=== PATIENT | male | born 1955 | race Caucasian/White ===

== ENCOUNTER → 2017-02-03 | Outpatient (REF) | payer OTHER ==
[2017-02-03 18:58] LABS: MEAN CORPUSCULAR HEMOGLOBIN 29.5 pg (27.0-33.0); MEAN CORPUSCULAR HGB CONC 33.2 g/dl (32.0-36.5); MEAN CORPUSCULAR VOLUME 88.9 fl (80.0-96.0); WHITE BLOOD COUNT 7.9 K/mm3 (4.0-10.0)
[2017-02-03 19:33] LABS: ALBUMIN/GLOBULIN RATIO 0.86 (1.00-1.93); ALKALINE PHOSPHATASE 146 U/L (45-117); ALT/SGPT 28 U/L (12-78); ANION GAP 12 MEQ/L (8-16); AST/SGOT 15 U/L (15-37); BILIRUBIN,TOTAL 0.2 MG/DL (0.2-1.0); BLOOD UREA NITROGEN 47 MG/DL (7-18); CALCIUM LEVEL 8.2 MG/DL (8.8-10.2); CARBON DIOXIDE LEVEL 19 MEQ/L (21-32); CHLORIDE LEVEL 111 MEQ/L (98-107); CHOLESTEROL LEVEL 198 MG/DL (<200); CREATININE FOR GFR 2.67 MG/DL (0.70-1.30); GLOMERULAR FILTRATION RATE 25.9 (>49); GLUCOSE, FASTING 274 MG/DL (80-110); SODIUM LEVEL 142 MEQ/L (136-145); T UPTAKE 35 % (33-40); THYROXINE (T4) 9.6 UG/DL (4.5-12.0); TOTAL PROTEIN 6.5 GM/DL (6.4-8.2); TRIGLYCERIDES LEVEL 412 MG/DL (<150)
== END ==
LOC: M SFHCLERA 09:13
PROVIDERS: ATTEND Family Medicine
DX: E11.9 Type 2 diabetes mellitus without complications (principal)

== ENCOUNTER → 2017-03-16 | Outpatient (REF) | payer OTHER ==
[2017-03-16 18:13] LABS: MEAN CORPUSCULAR HEMOGLOBIN 29.5 pg (27.0-33.0); MEAN CORPUSCULAR HGB CONC 32.5 g/dl (32.0-36.5); MEAN CORPUSCULAR VOLUME 90.9 fl (80.0-96.0); RED CELL DISTRIBUTION WIDTH 13.8 % (11.5-14.5); WHITE BLOOD COUNT 6.1 K/mm3 (4.0-10.0)
[2017-03-16 18:36] LABS: ALBUMIN 3.3 GM/DL (3.2-5.2); ALKALINE PHOSPHATASE 144 U/L (45-117); ALT/SGPT 35 U/L (12-78); ANION GAP 8 MEQ/L (8-16); AST/SGOT 13 U/L (15-37); BILIRUBIN,TOTAL 0.3 MG/DL (0.2-1.0); BLOOD UREA NITROGEN 40 MG/DL (7-18); CARBON DIOXIDE LEVEL 22 MEQ/L (21-32); CHLORIDE LEVEL 106 MEQ/L (98-107); CHOLESTEROL LEVEL 200 MG/DL (<200); GLOMERULAR FILTRATION RATE 22.6 (>49); GLUCOSE, FASTING 341 MG/DL (80-110); TOTAL PROTEIN 6.6 GM/DL (6.4-8.2); TRIGLYCERIDES LEVEL 472 MG/DL (<150)
[2017-03-16 18:53] LABS: SODIUM LEVEL 136 MEQ/L (136-145)
== END ==
LOC: M SFHCLERA 10:34
PROVIDERS: ATTEND Family Medicine
DX: E11.3219 Type 2 diabetes mellitus with mild nonproliferative diabetic retinopathy with macular edema, unspecified eye (principal)

== ENCOUNTER → 2017-07-25 | Outpatient (REF) | payer OTHER ==
[2017-07-25 16:06] LABS: CALCIUM LEVEL 8.4 MG/DL (8.8-10.2); CREATININE FOR GFR 2.96 MG/DL (0.70-1.30)
[2017-07-25 16:11] LABS: POTASSIUM SERUM 5.8 MEQ/L (3.5-5.1)
== END ==
LOC: M SFHCLERA 11:02
PROVIDERS: ATTEND Family Medicine
DX: E13.3 Other specified diabetes mellitus with ophthalmic complications (principal); E78.2 Mixed hyperlipidemia

== ENCOUNTER → 2017-07-27 | Outpatient (REF) | payer OTHER ==
[2017-07-27 12:07] LABS: CALCIUM LEVEL 8.8 MG/DL (8.8-10.2); CREATININE FOR GFR 2.71 MG/DL (0.70-1.30); GLOMERULAR FILTRATION RATE 25.4 (>49)
== END ==
LOC: M SFHCLERA 09:57
PROVIDERS: ATTEND Family Medicine
DX: E87.5 Hyperkalemia (principal)

== ENCOUNTER → 2017-07-31 | Outpatient (CLI) | payer OTHER ==
[2017-07-31 12:58] LABS: CALCIUM LEVEL 8.1 MG/DL (8.8-10.2); CREATININE FOR GFR 3.1 MG/DL (0.70-1.30); GLOMERULAR FILTRATION RATE 21.8 (>49)
[2017-07-31 13:06] LABS: POTASSIUM SERUM 5.7 MEQ/L (3.5-5.1)
== END ==
LOC: M LAB 11:51
PROVIDERS: ATTEND Family Medicine
DX: E87.5 Hyperkalemia (principal)

== ENCOUNTER → 2017-10-23 | Outpatient (REF) | payer OTHER | LOC: M SFHCLERA 11:12 | PROVIDERS: ATTEND Family Medicine | DX: E13.3 Other specified diabetes mellitus with ophthalmic complications (principal); E78.2 Mixed hyperlipidemia; N18.4 Chronic kidney disease, stage 4 (severe); E13.22 Other specified diabetes mellitus with diabetic chronic kidney disease ==

== ENCOUNTER → 2018-03-01 | Outpatient (REF) | payer OTHER ==
[2018-03-01 12:00] LABS: ESTIMATED AVERAGE GLUCOSE 246 MG/DL (60-110); HEMOGLOBIN A1c 10.2 %
[2018-03-01 12:18] LABS: THYROID STIMULATING HORMONE 0.879 uIU/ML (0.358-3.740)
== END ==
LOC: M SFHCLERA 10:47
DX: E11.9 Type 2 diabetes mellitus without complications (principal)
CPT/HCPCS: 84443

== ENCOUNTER → 2018-06-27 | Outpatient (REF) | payer OTHER ==
[2018-06-27 14:07] LABS: ESTIMATED AVERAGE GLUCOSE 217 MG/DL (60-110); HEMOGLOBIN A1c 9.2 %
== END ==
LOC: M SFHCLERA 09:17
DX: E11.9 Type 2 diabetes mellitus without complications (principal)

== ENCOUNTER → 2018-12-27 | Outpatient (REF) | payer OTHER ==
[2018-12-27 14:33] LABS: CHOLESTEROL RISK RATIO 6.181 (<5)
[2018-12-27 15:23] LABS: CREATININE, URINE 94.3 MG/DL; MAU/CREAT RATIO 1336.1 MCG/MG (0.0-30.0)
[2018-12-27 15:44] LABS: HEMOGLOBIN A1c 9.7 %
== END ==
LOC: M SFHCLERA 13:16
PROVIDERS: ATTEND Family Medicine
DX: E11.9 Type 2 diabetes mellitus without complications (principal)

== ENCOUNTER → 2019-01-07 | Outpatient (REF) | payer OTHER ==
[2019-01-07 11:40] LABS: CHOLESTEROL RISK RATIO 6.545 (<5)
[2019-01-07 11:55] LABS: HEMOGLOBIN A1c 9.4 %
[2019-01-07 13:20] LABS: CREATININE, URINE 92.8 MG/DL
== END ==
LOC: M SFHCLERA 08:06
PROVIDERS: ATTEND Family Medicine
DX: E11.9 Type 2 diabetes mellitus without complications (principal)

== ENCOUNTER → 2019-04-10 | Outpatient (REF) | payer OTHER, MEDICARE ==
[2019-04-10 11:52] LABS: HEMOGLOBIN A1c 9.2 %
[2019-04-10 12:01] LABS: CALCIUM LEVEL 8.6 MG/DL (8.8-10.2); CHOLESTEROL RISK RATIO 4.971 (<5); CREATININE FOR GFR 3.5 MG/DL (0.70-1.30); GLOMERULAR FILTRATION RATE 18.8 (>49); POTASSIUM SERUM 4.5 MEQ/L (3.5-5.1)
== END ==
LOC: M SFHCLERA 09:35
PROVIDERS: ATTEND Family Medicine
DX: E11.9 Type 2 diabetes mellitus without complications (principal); E78.2 Mixed hyperlipidemia

== ENCOUNTER → 2019-07-18 | Outpatient (REF) | payer OTHER, MEDICARE ==
[2019-07-18 12:22] LABS: CALCIUM LEVEL 8.4 MG/DL (8.8-10.2); CHOLESTEROL RISK RATIO 4.75 (<5); CREATININE FOR GFR 3.48 MG/DL (0.70-1.30); GLOMERULAR FILTRATION RATE 18.9 (>49); POTASSIUM SERUM 4.4 MEQ/L (3.5-5.1)
[2019-07-18 12:27] LABS: HEMOGLOBIN A1c 8.4 %
== END ==
LOC: M SFHCLERA 07:47
PROVIDERS: ATTEND Family Medicine
DX: E11.9 Type 2 diabetes mellitus without complications (principal); N18.4 Chronic kidney disease, stage 4 (severe)

== ENCOUNTER → 2019-10-22 | Outpatient (REF) | payer OTHER, MEDICARE ==
[2019-10-22 19:03] LABS: HEMOGLOBIN A1c 9.2 %
== END ==
LOC: M SFHCLERA 12:03
PROVIDERS: ATTEND Family Medicine
DX: E11.22 Type 2 diabetes mellitus with diabetic chronic kidney disease (principal); E03.9 Hypothyroidism, unspecified

== ENCOUNTER → 2020-03-03 | Outpatient (CLI) | payer OTHER, MEDICARE | LOC: M RAD 12:42 | PROVIDERS: ATTEND Nurse Practitioner Family | DX: N18.4 Chronic kidney disease, stage 4 (severe) (principal) ==

== ENCOUNTER → 2020-05-05 | Outpatient (CLI) | payer OTHER ==
[~2020-05-05] MED LIST: ASPI81CH33 PO; CALC1CAP31; DILT300C21; ESOM40CA35; GLIP10TA6; HYDR-3490; HYDR-3911; INSUH10VL; INSULANT; LEVO150T7; METO100T5; ROSU40TA4
[2020-05-05 13:59] LABS: BASO % 0.4 % (0.0-1.0); EOS # 0.2 10^3/uL (0.0-0.5); EOS % 2.3 % (0.0-3.0); HEMATOCRIT 37.3 % (42.0-52.0); HEMOGLOBIN 12.1 g/dl (13.5-17.5); LYMPH # 1.4 10^3/uL (1.5-5.0); LYMPH % 18.1 % (24.0-44.0); MEAN CORPUSCULAR HEMOGLOBIN 29.2 pg (27.0-33.0); MEAN CORPUSCULAR HGB CONC 32.4 g/dl (32.0-36.5); MEAN CORPUSCULAR VOLUME 90.1 fl (80.0-96.0); MONO # 0.7 10^3/uL (0.0-0.8); MONO % 9.5 % (0.0-5.0); NEUTROPHILS # 5.3 10^3/uL (1.5-8.5); NEUTROPHILS % 69.3 % (36.0-66.0); PLATELET COUNT, AUTOMATED 207 10^3/uL (150-450); RED BLOOD COUNT 4.14 10^6/uL (4.30-6.10); WHITE BLOOD COUNT 7.7 10^3/uL (4.0-10.0)
[2020-05-05 14:24] LABS: ALBUMIN 3.3 GM/DL (3.2-5.2); ALT/SGPT 26 U/L (12-78); BILIRUBIN,DIRECT 0.1 MG/DL (0.0-0.2); BILIRUBIN,TOTAL 0.4 MG/DL (0.2-1.0); TOTAL PROTEIN 6.5 GM/DL (6.4-8.2)
[2020-05-05 14:34] LABS: HEPATITIS B SURFACE ANTIBODY NEGATIVE (POSITIVE)
[2020-05-05 14:44] LABS: HEPATITIS B SURFACE ANTIGEN NEGATIVE (NEGATIVE)
[2020-05-05 14:46] LABS: HEMOGLOBIN A1c 9.1 %
--- NOTE | 2020-05-05 14:49 | REP ---
Clinical: Preoperative assessment. Awaiting kidney transplant. Comparison: None . Technique: PA and lateral. Findings: The mediastinum and cardiac silhouette are normal. The lung sen are clear and without acute consolidation, effusion, or pneumothorax. The skeletal structures are intact and normal. Impression: 1. No acute cardiopulmonary process. Electronically Signed by Kavon Dietrich MD 05/05/2020 02:41 P
[2020-05-06 12:08] LABS: C-PEPTIDE 5.1 ng/mL (1.1-4.4)
[2020-05-06 19:07] LABS: CARDIOLIPIN IGA ANTIBODY <9 APL U/mL (0-11); CARDIOLIPIN IGG ANTIBODY <9 GPL U/mL (0-14); CARDIOLIPIN IGM ANTIBODY <9 MPL U/mL (0-12); CYTOMEGALOVIRUS IgG ANTIBODY <0.60 U/mL (0.00-0.59); EBV AB TO NUCLEAR ANTIGEN >600.0 U/mL (0.0-17.9); EBV VIRAL CAPSID AG IgG >600.0 U/mL (0.0-17.9); EBV VIRAL CAPSID AG IgM <36.0 U/mL (0.0-35.9); G6PD2 4.17 x10E6/uL (4.14-5.80)
== END ==
LOC: M RAD 11:39
PROVIDERS: ATTEND Internal Medicine Nephrology
DX: Z01.818 Encounter for other preprocedural examination (principal); N18.6 End stage renal disease

== ENCOUNTER → 2020-05-14 | Outpatient (CLI) | payer OTHER ==
--- NOTE | 2020-05-15 07:33 | REP ---
ULTRASOUND ABDOMEN: Real-time sonographic evaluation of the abdomen performed. Gallbladder demonstrates no evidence of intraluminal sludge or calculi, wall thickening or pericholecystic fluid. There is no intrahepatic or extrahepatic biliary dilatation, common bile duct measuring 6 mm. The liver and pancreas demonstrate on gross mass. Evaluation is limited due to patient body habitus and bowel gas. The spleen is normal in size with no intrinsic abnormality measuring 11.6 cm in length. The kidneys are normal in size and echotexture, right kidney measuring 13.3 x 7.0 x 6.5 cm and left kidney 12.7 x 6.5 cm and left kidney 12.7 x 6.5 x 5.4 cm. There is no hydronephrosis or gross renal mass. Abdominal aorta cannot be visualized due to overlying bowel gas. Urinary bladder measures 17.1 x 7.2 x 7.3 cm with no gross mass or calculus. Ureteral jets are seen in the urinary bladder with Doppler color evaluation. IMPRESSION: Limited exam due to body habitus and bowel gas. Grossly unremarkable Abdominal ultrasound as discussed above. Electronically Signed by Sergey Augustine MD 05/24/2020 11:25 A
== END ==
LOC: M LRY 08:55
PROVIDERS: ATTEND Internal Medicine Nephrology
DX: Z01.818 Encounter for other preprocedural examination (principal); Z76.82 Awaiting organ transplant status

== ENCOUNTER → 2020-08-26 | Outpatient (REF) | payer OTHER, MEDICARE ==
[2020-08-28 20:07] LABS: PSA TOTAL 1.4 ng/mL (0.0-4.0)
== END ==
LOC: M LAB REF 16:55
PROVIDERS: ATTEND Nurse Practitioner Family
DX: Z12.5 Encounter for screening for malignant neoplasm of prostate (principal)

== ENCOUNTER → 2020-10-17 | Outpatient (CLI) | payer OTHER, MEDICARE ==
[~2020-10-17] MED LIST changes: -HYDR-3490; +HYDR25TAB
== END ==
LOC: M LABSMTC 08:53
PROVIDERS: ATTEND Anesthesiology
DX: Z01.812 Encounter for preprocedural laboratory examination (principal); Z20.828 Contact with and (suspected) exposure to other viral communicable diseases

== ENCOUNTER 2020-10-22 08:43 | Day surgery (SDC) | payer OTHER, MEDICARE ==
[~2020-10-22] VITALS: Ht 190.5 cm; Wt 120.2 kg
[~2020-10-22 08:43] MED LIST changes: +NS 1,000 ML IV ONE
[2020-10-22] MEDS ORDERED: LIDOCAINE 2% 100MG/5ML SDV (FOR ANES.) As Ordered ONE (10:15)
[2020-10-22] MEDS ORDERED: propofoL 200 MG/20 ML VIAL As Ordered ONE ×3 (10:15→10:54)
[2020-10-22] MEDS ORDERED: ONDANSETRON 4MG/2ML VIAL As Ordered ONE (10:48)
[2020-10-22 11:25] VITALS: BP 174/70
--- NOTE | 2020-10-22 11:27 | ROOR ---
Patient Name: Percy Kaufman Procedure Date: 10/22/2020 10:07 AM Date of : 1955 Age: 65 Room: [facility] Gender: Male Note Status: Finalized Procedure: Colonoscopy Indications: Screening for colorectal malignant neoplasm Providers: Elvis Higginbotham MD Referring MD: FRANCISCO WALDROP MD Requesting Provider: Medicines: Monitored Anesthesia Care Complications: No immediate complications. Procedure: Pre-Anesthesia Assessment: - Prior to the procedure, a History and Physical was performed, and patient medications and allergies were reviewed. The patient is competent. The risks and benefits of the procedure and the sedation options and risks were discussed with the patient. All questions were answered and informed consent was obtained. Patient identification and proposed procedure were verified by the physician, the nurse and the anesthesiologist in the procedure room. Mental Status Examination: alert and oriented. Airway Examination: normal oropharyngeal airway and neck mobility. Respiratory Examination: clear to auscultation. CV Examination: normal. Prophylactic Antibiotics: The patient does not require prophylactic antibiotics. Prior Anticoagulants: The patient has taken no previous anticoagulant or antiplatelet agents. ASA Grade Assessment: II - A patient with mild systemic disease. After reviewing the risks and benefits, the patient was deemed in satisfactory condition to undergo the procedure. The anesthesia plan was to use monitored anesthesia care (MAC). Immediately prior to administration of medications, the patient was re-assessed for adequacy to receive sedatives. The heart rate, respiratory rate, oxygen saturations, blood pressure, adequacy of pulmonary ventilation, and response to care were monitored throughout the procedure. The physical status of the patient was re-assessed after the procedure. The Colonoscope was introduced through the anus and advanced to the cecum, identified by appendiceal orifice and ileocecal valve. The colonoscopy was technically difficult and complex due to multiple diverticula in the colon, a tortuous colon and the patient's respiratory instability. Successful completion of the procedure was aided by applying abdominal pressure. The patient tolerated the procedure poorly due to the patient's respiratory instability. The quality of the bowel preparation was good. The ileocecal valve, appendiceal orifice, and rectum were photographed. Scope insertion time was 3 minutes. Scope withdrawal time was 10 minutes. The total duration of the procedure was 30 minutes. Findings: The perianal and digital rectal examinations were normal. A 35 mm polyp was found in the ascending colon. The polyp was pedunculated and semi-sessile. An endoloop device was successfully placed at the base of the polyp. There was no bleeding during and at the end of the procedure. The polyp was removed with a hot snare. Resection and retrieval were complete. Verification of patient identification for the specimen was done by the physician and nurse using the patient's name, date and medical record number. Estimated blood loss was minimal. A 5 mm polyp was found in the transverse colon. The polyp was sessile. The polyp was removed with a cold snare. Resection and retrieval were complete. Multiple small and large-mouthed diverticula were found from sigmoid to transverse colon. There was no evidence of diverticular bleeding. Non-bleeding external and internal hemorrhoids were found during retroflexion. The hemorrhoids were large. Impression: - One 35 mm polyp in the ascending colon, removed with a hot snare. Resected and retrieved. - One 5 mm polyp in the transverse colon, removed with a cold snare. Resected and retrieved. - Severe diverticulosis from sigmoid to transverse colon. There was no evidence of diverticular bleeding. - Non-bleeding external and internal hemorrhoids. Recommendation: - Patient has a contact number available for emergencies. The signs and symptoms of potential delayed complications were discussed with the patient. Return to normal activities tomorrow. Written discharge instructions were provided to the patient. - Clear liquid diet today, then advance as tolerated to high fiber diet. - Continue present medications. - Miralax 1 capful (17 grams) in 8 ounces of water PO daily. - Await pathology results. - Repeat colonoscopy in 3 - 6 months for surveillance based on pathology results. - Return to GI clinic in 2 months. - Telephone GI clinic for pathology results in 2 weeks. - Return to primary care physician. Procedure Code(s): --- Professional --- 02076, Colonoscopy, flexible; with removal of tumor(s), polyp(s), or other lesion(s) by snare technique Diagnosis Code(s): --- Professional --- Z12.11, Encounter for screening for malignant neoplasm of colon K63.5, Polyp of colon K64.8, Other hemorrhoids K57.30, Diverticulosis of large intestine without perforation or abscess without bleeding CPT copyright 2019 [employer]. All rights reserved. The codes documented in this report are preliminary and upon vp communications review may be revised to meet current compliance requirements. Elvis Higginbotham MD Elvis Higginbotham MD 10/22/2020 11:27:01 AM Electronically signed by Elvis Higginbotham MD Number of Addenda: 0 Note Initiated On: 10/22/2020 10:07 AM Estimated Blood Loss: Estimated blood loss was minimal.
== END 2020-10-22 12:10 | disposition home or self-care (01) ==
LOC: M OPP 08:43
PROVIDERS: ATTEND Internal Medicine Gastroenterology
DX: Z12.11 Encounter for screening for malignant neoplasm of colon (principal); D12.6 Benign neoplasm of colon, unspecified; K64.8 Other hemorrhoids; K57.30 Diverticulosis of large intestine without perforation or abscess without bleeding; E11.9 Type 2 diabetes mellitus without complications; E03.9 Hypothyroidism, unspecified; Z79.82 Long term (current) use of aspirin; Z79.899 Other long term (current) drug therapy; Z88.8 Allergy status to other drugs, medicaments and biological substances
CPT/HCPCS: 45385; 88305; J2405

== ENCOUNTER → 2020-11-23 | Outpatient (CLI) | payer OTHER, MEDICARE ==
[~2020-11-23] MED LIST changes: +HYDR-3490; -HYDR25TAB; -NS 1,000 ML IV ONE
== END ==
LOC: M LAB 16:26
PROVIDERS: ATTEND Internal Medicine Nephrology
DX: Z01.818 Encounter for other preprocedural examination (principal)

== ENCOUNTER → 2021-03-01 | Outpatient (REF) | payer OTHER, MEDICARE ==
[2021-03-01 18:07] LABS: CALCIUM LEVEL 9.1 MG/DL (8.8-10.2); CHOLESTEROL RISK RATIO 5.184 (<5); CREATININE FOR GFR 4.13 MG/DL (0.70-1.30); GLOMERULAR FILTRATION RATE 15.4 (>49); POTASSIUM SERUM 4.9 MEQ/L (3.5-5.1); THYROID STIMULATING HORMONE 3.33 uIU/ML (0.358-3.740)
[2021-03-01 18:16] LABS: HEMOGLOBIN A1c 10.6 %
== END ==
LOC: M SFHCLERA 16:52
PROVIDERS: ATTEND Family Medicine
DX: E11.22 Type 2 diabetes mellitus with diabetic chronic kidney disease (principal); E03.9 Hypothyroidism, unspecified

== ENCOUNTER → 2021-04-03 | Outpatient (CLI) | payer OTHER, MEDICARE ==
[~2021-04-03] MED LIST changes: +D3-5CAP; -INSUH10VL; +INSUH10VL SC
== END ==
LOC: M LABSMTC 09:07
PROVIDERS: ATTEND Anesthesiology
DX: Z20.828 Contact with and (suspected) exposure to other viral communicable diseases (principal); Z11.59 Encounter for screening for other viral diseases

== ENCOUNTER → 2021-04-07 | Outpatient (CLI) | payer OTHER, MEDICARE ==
[2021-04-07 12:40] LABS: CALCIUM LEVEL 8.4 MG/DL (8.8-10.2); CREATININE FOR GFR 4.04 MG/DL (0.70-1.30); GLOMERULAR FILTRATION RATE 15.8 (>49); POTASSIUM SERUM 4.8 MEQ/L (3.5-5.1)
== END ==
LOC: M LAB 11:03
PROVIDERS: ATTEND Physician Assistant Medical
DX: Z12.11 Encounter for screening for malignant neoplasm of colon (principal)

== ENCOUNTER 2021-04-08 08:47 | Day surgery (SDC) | payer OTHER, MEDICARE ==
[~2021-04-08] VITALS: Ht 190.5 cm; Wt 118.8 kg
[~2021-04-08 08:47] MED LIST changes: +NS 1,000 ML IV ONE
[2021-04-08] MEDS ORDERED: fentaNYL 100 MCG/2 ML INJECTION (J3010) As Ordered ONE (10:09)
[2021-04-08] MEDS ORDERED: propofoL 500 MG/50 ML VIAL As Ordered ONE (10:32)
[2021-04-08 10:45] VITALS: BP 140/83
--- NOTE | 2021-04-08 11:04 | ROOR ---
Patient Name: Percy Kaufman Procedure Date: 04/08/2021 9:47 AM Date of : 1955 Age: 66 Room: [facility] Gender: Male Note Status: Finalized Procedure: Colonoscopy Indications: High risk colon cancer surveillance: Personal history of adenoma with high grade dysplasia Providers: Elvis Higginbotham MD Referring MD: Crispin Riley DO Requesting Provider: Medicines: Monitored Anesthesia Care Complications: No immediate complications. Procedure: Pre-Anesthesia Assessment: - Prior to the procedure, a History and Physical was performed, and patient medications and allergies were reviewed. The patient is competent. The risks and benefits of the procedure and the sedation options and risks were discussed with the patient. All questions were answered and informed consent was obtained. Patient identification and proposed procedure were verified by the physician, the nurse and the anesthesiologist in the procedure room. Mental Status Examination: alert and oriented. Airway Examination: normal oropharyngeal airway and neck mobility. Respiratory Examination: clear to auscultation. CV Examination: normal. Prophylactic Antibiotics: The patient does not require prophylactic antibiotics. Prior Anticoagulants: The patient has taken no previous anticoagulant or antiplatelet agents. ASA Grade Assessment: III - A patient with severe systemic disease. After reviewing the risks and benefits, the patient was deemed in satisfactory condition to undergo the procedure. The anesthesia plan was to use monitored anesthesia care (MAC). Immediately prior to administration of medications, the patient was re-assessed for adequacy to receive sedatives. The heart rate, respiratory rate, oxygen saturations, blood pressure, adequacy of pulmonary ventilation, and response to care were monitored throughout the procedure. The physical status of the patient was re-assessed after the procedure. The Colonoscope was introduced through the anus and advanced to the cecum, identified by appendiceal orifice and ileocecal valve. The colonoscopy was performed without difficulty. The patient tolerated the procedure well. The quality of the bowel preparation was good. The terminal ileum, ileocecal valve, appendiceal orifice, and rectum were photographed. Scope insertion time was 2 minutes. Scope withdrawal time was 9 minutes. The total duration of the procedure was 12 minutes. Findings: The perianal and digital rectal examinations were normal. A 6 mm post polypectomy scar was found in the proximal ascending colon. The scar tissue was healthy in appearance. Biopsies were taken with a cold forceps for histology. Verification of patient identification for the specimen was done by the physician and nurse using the patient's name, date and medical record number. Estimated blood loss was minimal. A 3 mm polyp was found in the ascending colon. The polyp was sessile. The polyp was removed with a jumbo cold forceps. Resection and retrieval were complete. Verification of patient identification for the specimen was done by the physician and nurse using the patient's name, date and medical record number. Estimated blood loss was minimal. A 3 mm polyp was found in the sigmoid colon. The polyp was sessile. The polyp was removed with a jumbo cold forceps. Resection and retrieval were complete. Multiple small and large-mouthed diverticula were found in the sigmoid colon. There was no evidence of diverticular bleeding. Non-bleeding external and internal hemorrhoids were found during retroflexion. The hemorrhoids were medium-sized. Impression: - Post-polypectomy scar in the proximal ascending colon. Biopsied. - One 3 mm polyp in the ascending colon, removed with a jumbo cold forceps. Resected and retrieved. - One 3 mm polyp in the sigmoid colon, removed with a jumbo cold forceps. Resected and retrieved. - Moderate diverticulosis in the sigmoid colon. There was no evidence of diverticular bleeding. - Non-bleeding external and internal hemorrhoids. Recommendation: - Patient has a contact number available for emergencies. The signs and symptoms of potential delayed complications were discussed with the patient. Return to normal activities tomorrow. Written discharge instructions were provided to the patient. - High fiber diet and low sodium diet. - Continue present medications. - Await pathology results. - Repeat colonoscopy in 3 years for surveillance based on pathology results and due to personal history of colon polyps in past Colonoscopy. - Telephone GI clinic for pathology results in 2 weeks. - Return to GI clinic in 3 years. - Return to primary care physician. Procedure Code(s): --- Professional --- 61318, Colonoscopy, flexible; with biopsy, single or multiple Diagnosis Code(s): --- Professional --- Z86.010, Personal history of colonic polyps Z98.890, Other specified postprocedural states K63.5, Polyp of colon K64.8, Other hemorrhoids K57.30, Diverticulosis of large intestine without perforation or abscess without bleeding CPT copyright 2019 [employer]. All rights reserved. The codes documented in this report are preliminary and upon limousine and hearse upholsterer review may be revised to meet current compliance requirements. Elvis Higginbotham MD Elvis Higginbotham MD 04/08/2021 11:03:47 AM Electronically signed by Elvis Higginbotham MD Number of Addenda: 0 Note Initiated On: 04/08/2021 9:47 AM Estimated Blood Loss: Estimated blood loss was minimal.
== END 2021-04-08 11:06 | disposition home or self-care (01) ==
LOC: M OPP 08:47
PROVIDERS: ATTEND Internal Medicine Gastroenterology
DX: K63.5 Polyp of colon (principal); Z86.010 Personal history of colon polyps; Z09 Encounter for follow-up examination after completed treatment for conditions other than malignant neoplasm; Z98.890 Other specified postprocedural states; K57.30 Diverticulosis of large intestine without perforation or abscess without bleeding; K64.8 Other hemorrhoids; K21.9 Gastro-esophageal reflux disease without esophagitis; Z79.4 Long term (current) use of insulin; Z79.82 Long term (current) use of aspirin; Z79.899 Other long term (current) drug therapy; Z88.8 Allergy status to other drugs, medicaments and biological substances
CPT/HCPCS: 45380; 88305; J3010

== ENCOUNTER → 2021-08-23 | Outpatient (REF) | payer OTHER, MEDICARE ==
[~2021-08-23] MED LIST changes: -NS 1,000 ML IV ONE
== END ==
LOC: M LAB REF 13:03
PROVIDERS: ATTEND Nurse Practitioner Family
DX: E83.42 Hypomagnesemia (principal)

== ENCOUNTER → 2021-09-14 | Outpatient (CLI) | payer OTHER, MEDICARE ==
[2021-09-14 16:26] LABS: HEMOGLOBIN A1c 9.1 %
[2021-09-14 16:28] LABS: CALCIUM LEVEL 8.5 MG/DL (8.8-10.2); CREATININE FOR GFR 4.79 MG/DL (0.70-1.30); POTASSIUM SERUM 5.3 MEQ/L (3.5-5.1)
== END ==
LOC: M WUC 11:20
PROVIDERS: ATTEND Family Medicine
DX: E11.22 Type 2 diabetes mellitus with diabetic chronic kidney disease (principal); N18.9 Chronic kidney disease, unspecified

== ENCOUNTER → 2021-12-22 | Outpatient (CLI) | payer OTHER, MEDICARE ==
[2021-12-22 12:42] LABS: HEMOGLOBIN A1c 10.8 %
[2021-12-22 12:58] LABS: CALCIUM LEVEL 8.8 MG/DL (8.8-10.2); CREATININE FOR GFR 4.61 MG/DL (0.70-1.30); GLOMERULAR FILTRATION RATE 13.6 (>49); POTASSIUM SERUM 4.3 MEQ/L (3.5-5.1); THYROID STIMULATING HORMONE 1.9 uIU/ML (0.358-3.740)
== END ==
LOC: M WUC 10:09
PROVIDERS: ATTEND Family Medicine
DX: E11.22 Type 2 diabetes mellitus with diabetic chronic kidney disease (principal); E03.9 Hypothyroidism, unspecified; N18.9 Chronic kidney disease, unspecified

== ENCOUNTER → 2022-03-06 | Outpatient (REF) | payer OTHER, MEDICARE ==
[2022-03-06 17:40] LABS: CALCIUM LEVEL 8.7 MG/DL (8.8-10.2); CREATININE FOR GFR 4.93 MG/DL (0.70-1.30); GLOMERULAR FILTRATION RATE 12.6 (>49); POTASSIUM SERUM 5.1 MEQ/L (3.5-5.1)
== END ==
LOC: M WUC 15:39 → M LAB REF 15:39
PROVIDERS: ATTEND Internal Medicine Interventional Cardiology
DX: N18.4 Chronic kidney disease, stage 4 (severe) (principal)

== ENCOUNTER → 2022-04-24 | Outpatient (CLI) | payer OTHER, MEDICARE ==
[2022-04-24 13:18] LABS: CALCIUM LEVEL 9.4 MG/DL (8.8-10.2); CREATININE FOR GFR 6.91 MG/DL (0.70-1.30); GLOMERULAR FILTRATION RATE 8.5 (>49); POTASSIUM SERUM 4.7 MEQ/L (3.5-5.1)
[2022-04-24 13:36] LABS: HEMOGLOBIN A1c 12.2 %
== END ==
LOC: M WUC 10:14
PROVIDERS: ATTEND Family Medicine
DX: E11.22 Type 2 diabetes mellitus with diabetic chronic kidney disease (principal)

== ENCOUNTER → 2022-05-17 | Outpatient (CLI) | payer OTHER | LOC: M RAD 07:55 | PROVIDERS: ATTEND Nurse Practitioner Family | DX: Z01.818 Encounter for other preprocedural examination (principal); N18.6 End stage renal disease ==

== ENCOUNTER → 2022-05-19 | Outpatient (REF) | payer OTHER ==
[2022-05-19 18:16] LABS: HEPATITIS B CORE ANTIBODY IGM NEGATIVE (NEGATIVE); HEPATITIS B SURFACE ANTIBODY NEGATIVE (POSITIVE); HEPATITIS B SURFACE ANTIGEN NEGATIVE (NEGATIVE); HEPATITIS C VIRUS ABY INDEX 0.2 INDEX (<0.8)
== END ==
LOC: M LAB REF 16:36
PROVIDERS: ATTEND Nurse Practitioner Family
DX: N18.5 Chronic kidney disease, stage 5 (principal)

== ENCOUNTER → 2022-09-05 | Outpatient (CLI) | payer OTHER, MEDICARE | LOC: M RAD 10:08 | PROVIDERS: ATTEND Surgery Vascular Surgery | DX: N18.6 End stage renal disease (principal) ==

== ENCOUNTER → 2022-10-02 | Outpatient (CLI) | payer OTHER, MEDICARE ==
[~2022-10-02] MED LIST changes: +CALC1CAP PO; +CETI5SOL3 PO; -GLIP10TA6; +GLIP10TA6 PO; +INSU100V11 SQ; +METO5TAB2 PO; +SODI650T PO
== END ==
LOC: M LABSMTC 11:09
PROVIDERS: ATTEND Anesthesiology
DX: Z01.812 Encounter for preprocedural laboratory examination (principal); Z11.52 Encounter for screening for COVID-19

== ENCOUNTER → 2022-10-03 | Outpatient (CLI) | payer OTHER, MEDICARE | LOC: M EKG 10:37 | PROVIDERS: ATTEND Surgery Vascular Surgery | DX: Z01.818 Encounter for other preprocedural examination (principal); E11.22 Type 2 diabetes mellitus with diabetic chronic kidney disease; E03.9 Hypothyroidism, unspecified; R12 Heartburn; E78.5 Hyperlipidemia, unspecified; N18.6 End stage renal disease ==

== ENCOUNTER 2022-10-06 08:39 | Day surgery (SDC) | payer OTHER, MEDICARE ==
[~2022-10-06] VITALS: Ht 188 cm; Wt 117.5 kg
[~2022-10-06 08:39] MED LIST changes: +LIDOCAINE 2% 100MG/5ML SDV (FOR ANES.) As Ordered ONE; +ONDANSETRON 4MG 2ML VIAL As Ordered ONE; +ceFAZolin SOD 2 GM in IV 1 EA IV ONE; +dexameTHASONE 4 MG/ML 1ML VIAL (J1100 PER 1MG) As Ordered ONE; +propofoL 200 MG/20 ML VIAL As Ordered ONE
[2022-10-06] MEDS ORDERED: INSULIN LISPRO (NovoLOG) PER UNIT SC PRN (09:05)
[2022-10-06] MEDS ORDERED: NS 1,000 ML IV SCH (09:05)
[2022-10-06] MEDS ORDERED: PAPAVERINE HCL 60MG 2ML VIAL (30MG/ML) As Ordered ONE (09:25)
[2022-10-06] MEDS ORDERED: LIDOCAINE 1% SDV 30ML VIAL As Ordered ONE (09:25)
[2022-10-06] MEDS ORDERED: HEPARIN SOD (PORCINE) 5000UNITS/ML 1ML VIAL/SYRINGE As Ordered ONE (09:25)
[2022-10-06 09:35] LABS: HEMOGLOBIN 11.3 g/dl (13.5-17.5); MEAN CORPUSCULAR HGB CONC 31.4 g/dl (32.0-36.5); MEAN CORPUSCULAR VOLUME 92.3 fl (80.0-96.0); PLATELET COUNT, AUTOMATED 246 10^3/uL (150-450); WHITE BLOOD COUNT 8.8 10^3/uL (4.0-10.0)
[2022-10-06 09:49] LABS: INR 0.86; PROTHROMBIN TIME 11.9 SECONDS (12.5-14.5)
[2022-10-06 09:50] LABS: PARTIAL THROMBOPLASTIN TIME 25.9 SECONDS (24.8-34.2)
[2022-10-06 10:13] LABS: CALCIUM LEVEL 9.9 MG/DL (8.3-10.6); POTASSIUM SERUM 4.2 MMOL/L (3.5-5.1)
[2022-10-06 10:16] LABS: CREATININE FOR GFR 5.5 MG/DL (0.70-1.30); GLOMERULAR FILTRATION RATE 11.1 (>49)
[2022-10-06] MEDS ORDERED: KETAMINE HCL 200 MG/20 ML VIAL As Ordered ONE (10:35)
[2022-10-06] MEDS ORDERED: propofoL 200 MG/20 ML VIAL As Ordered ONE ×3 (10:50→11:30)
[2022-10-06 13:00] VITALS: BP 154/78
== END 2022-10-06 13:10 | disposition home or self-care (01) ==
LOC: M SDC 08:39
PROVIDERS: ATTEND Surgery Vascular Surgery
DX: N18.6 End stage renal disease (principal); I12.0 Hypertensive chronic kidney disease with stage 5 chronic kidney disease or end stage renal disease; E78.5 Hyperlipidemia, unspecified; E11.9 Type 2 diabetes mellitus without complications; E03.9 Hypothyroidism, unspecified; K21.9 Gastro-esophageal reflux disease without esophagitis; Z79.4 Long term (current) use of insulin; Z79.82 Long term (current) use of aspirin; Z79.84 Long term (current) use of oral hypoglycemic drugs; Z79.899 Other long term (current) drug therapy
CPT/HCPCS: 36415; 36821; 80048; 85027; 85610; 85730; 86850; 86900; 86901; J0690; J1100; J1644; J2405; J2440

== ENCOUNTER → 2022-11-28 | Outpatient (REF) | payer OTHER, MEDICARE ==
[~2022-11-28] MED LIST changes: -LIDOCAINE 2% 100MG/5ML SDV (FOR ANES.) As Ordered ONE; -ONDANSETRON 4MG 2ML VIAL As Ordered ONE; -ceFAZolin SOD 2 GM in IV 1 EA IV ONE; -dexameTHASONE 4 MG/ML 1ML VIAL (J1100 PER 1MG) As Ordered ONE; -propofoL 200 MG/20 ML VIAL As Ordered ONE
[2022-11-28 19:24] LABS: HEMOGLOBIN A1c 9.6 % (4.0-6.0)
== END ==
LOC: M LAB REF 17:11
PROVIDERS: ATTEND Family Medicine
DX: E11.22 Type 2 diabetes mellitus with diabetic chronic kidney disease (principal); E03.9 Hypothyroidism, unspecified

== ENCOUNTER → 2023-01-25 | Outpatient (REF) | payer OTHER, MEDICARE ==
[2023-01-25 16:33] LABS: POTASSIUM SERUM 4.6 MMOL/L (3.5-5.1)
== END ==
LOC: M LAB REF 15:02
PROVIDERS: ATTEND Nurse Practitioner Family
DX: N18.5 Chronic kidney disease, stage 5 (principal)

== ENCOUNTER → 2023-02-23 | Outpatient (REF) | payer MEDICARE, OTHER ==
[2023-02-23 18:18] LABS: HEPATITIS B SURFACE ANTIBODY NEGATIVE (POSITIVE)
[2023-02-23 18:31] LABS: HEPATITIS B SURFACE ANTIGEN NEGATIVE (NEGATIVE)
[2023-02-23 18:51] LABS: HEPATITIS B CORE ANTIBODY IGM NEGATIVE (NEGATIVE)
== END ==
LOC: M LAB REF 16:54
PROVIDERS: ATTEND Nurse Practitioner Family
DX: N18.5 Chronic kidney disease, stage 5 (principal)

== ENCOUNTER → 2023-02-23 | Outpatient (REF) | payer MEDICARE, OTHER ==
[2023-02-23 18:52] LABS: HEMOGLOBIN A1c 10.1 % (4.0-6.0)
== END ==
LOC: M SFHCLERA 17:14
PROVIDERS: ATTEND Family Medicine
DX: E11.22 Type 2 diabetes mellitus with diabetic chronic kidney disease (principal)

== ENCOUNTER → 2023-05-23 | Outpatient (REF) | payer OTHER, MEDICARE ==
[2023-05-23 18:33] LABS: HEPATITIS B SURFACE ANTIBODY NEGATIVE (POSITIVE)
[2023-05-23 18:44] LABS: HEPATITIS B SURFACE ANTIGEN NEGATIVE (NEGATIVE)
[2023-05-23 19:05] LABS: HEPATITIS B CORE ANTIBODY IGM NEGATIVE (NEGATIVE); HEPATITIS C VIRUS ABY INDEX 0.09 INDEX (<0.8)
== END ==
LOC: M LAB REF 17:08
PROVIDERS: ATTEND Nurse Practitioner Family
DX: N18.5 Chronic kidney disease, stage 5 (principal)

== ENCOUNTER → 2023-06-20 | Outpatient (CLI) | payer MEDICARE, OTHER ==
[2023-06-20 10:06] LABS: HEMOGLOBIN A1c 8.9 % (4.0-6.0)
[2023-06-20 10:12] LABS: CALCIUM LEVEL 10.3 MG/DL (8.3-10.6); CHOLESTEROL RISK RATIO 5.36 (<5); CREATININE FOR GFR 5.02 MG/DL (0.70-1.30); GLOMERULAR FILTRATION RATE 12.3 (>49); LDL CHOLESTEROL 88.8 MG/DL (<100); THYROID STIMULATING HORMONE 3.454 uIU/ML (0.55-4.78)
== END ==
LOC: M LAB 08:55
PROVIDERS: ATTEND Family Medicine
DX: E11.22 Type 2 diabetes mellitus with diabetic chronic kidney disease (principal); E03.9 Hypothyroidism, unspecified; E78.2 Mixed hyperlipidemia

== ENCOUNTER → 2023-07-05 | Outpatient (CLI) | payer MEDICARE, OTHER | LOC: M RAD 08:28 | PROVIDERS: ATTEND Nurse Practitioner Family | DX: K31.84 Gastroparesis (principal) | CPT/HCPCS: 78264; A9541 ==

== ENCOUNTER 2023-09-09 12:06 | Observation (INO) | payer MEDICARE, OTHER ==
[~2023-09-09] VITALS: Ht 190.5 cm; Wt 117.3 kg
[~2023-09-09 12:06] MED LIST changes: -DILT300C21; +DILT300C21 PO; -HYDR-3911; +HYDR-3911 PO; -LEVO150T7; +LEVO150T7 PO; -METO100T5; +METO100T5 PO
[2023-09-09 13:19] LABS: BASO % 0.2 % (0.0-1.0); EOS # 0.2 10^3/uL (0.0-0.5); EOS % 1.8 % (0.0-3.0); HEMATOCRIT 29.8 % (42.0-52.0); HEMOGLOBIN 9.5 g/dl (13.5-17.5); LYMPH # 1.3 10^3/uL (1.5-5.0); LYMPH % 11.8 % (24.0-44.0); MEAN CORPUSCULAR HEMOGLOBIN 28.4 pg (27.0-33.0); MEAN CORPUSCULAR HGB CONC 31.9 g/dl (32.0-36.5); MONO # 0.9 10^3/uL (0.0-0.8); MONO % 7.8 % (2.0-8.0); NEUTROPHILS # 8.5 10^3/uL (1.5-8.5); NEUTROPHILS % 77.8 % (36.0-66.0); PLATELET COUNT, AUTOMATED 240 10^3/uL (150-450); RED BLOOD COUNT 3.35 10^6/uL (4.30-6.10); WHITE BLOOD COUNT 10.9 10^3/uL (4.0-10.0)
[2023-09-09 13:51] LABS: RSV AMPLIFICATION NEGATIVE (NEGATIVE)
[2023-09-09] MEDS ORDERED: ACETAMINOPHEN TAB 650MG DOSE (2X325MG) PO PRN (17:20)
[2023-09-09] MEDS ORDERED: MOM 30ML SUSPENSION UDC PO PRN (17:20)
[2023-09-09] MEDS ORDERED: GLUCOSE 4GM CHEW TABLET PO PRN (17:25)
[2023-09-09] MEDS ORDERED: GLUCAGON INJ 1MG VIAL SC PRN (17:25)
[2023-09-09] MEDS ORDERED: DEXTROSE 50% 50ML SYRINGE IV PRN (17:25)
[2023-09-09] MEDS ORDERED: HYDR50TA PO (17:45)
[2023-09-09] MEDS ORDERED: INSU100V11 SQ (18:04)
[2023-09-09] MEDS ORDERED: FLORCAP10 PO (18:04)
[2023-09-09] MEDS ORDERED: METO10TA2 PO (18:04)
[2023-09-09] MEDS ORDERED: ROSU40TA4 PO (18:04)
[2023-09-09] MEDS ORDERED: HOME MED LIST COMPLETE! XX SCH (18:10)
[2023-09-09] MEDS: INSULIN LISPRO (NovoLOG) PER UNIT SC SCH ×2 (18:37→20:02)
[2023-09-09 18:45] VITALS: BP 167/75; TEMP 97.7; O2SAT 97
[2023-09-09 18:58] LABS: INR 1.1; PROTHROMBIN TIME 13.9 SECONDS (12.5-14.5)
[2023-09-09] MEDS: DOCUSATE SODIUM 100MG CAPSULE PO SCH (20:14)
[2023-09-09] MEDS: ROSUVASTATIN 10 MG TAB (CRESTOR) PO SCH (20:14)
[2023-09-09] MEDS: METOCLOPRAMIDE 10MG TAB PO SCH (20:15)
[2023-09-09] MEDS: CALCIUM ACETATE 667MG GELCAP PO SCH (20:22)
[2023-09-09] MEDS ORDERED: LEVEMIR (INSULIN DETEMIR) 1 UNITS/0.01ML SC SCH (21:00)
[2023-09-09] MEDS ORDERED: **hydrALAZINE** 50 MG TAB PO SCH (21:00)
[2023-09-10] MEDS: HEPARIN SOD (PORCINE) 5000UNITS/ML 1ML VIAL/SYRINGE SC SCH ×3 (05:09→20:58)
[2023-09-10] MEDS: LEVOTHYROXINE 150MCG TABLET (0.15MG) PO SCH (05:09)
[2023-09-10 05:50] VITALS: BP 159/79; TEMP 97.9; O2SAT 95
[2023-09-10 05:52] LABS: HEMATOCRIT 29.3 % (42.0-52.0); HEMOGLOBIN 9.1 g/dl (13.5-17.5); MEAN CORPUSCULAR HEMOGLOBIN 27.9 pg (27.0-33.0); MEAN CORPUSCULAR HGB CONC 31.1 g/dl (32.0-36.5); MEAN CORPUSCULAR VOLUME 89.9 fl (80.0-96.0); PLATELET COUNT, AUTOMATED 221 10^3/uL (150-450); RED BLOOD COUNT 3.26 10^6/uL (4.30-6.10)
[2023-09-10 06:38] LABS: PERCENT SATURATION 18.1 %
[2023-09-10] MEDS: INSULIN LISPRO (NovoLOG) PER UNIT SC SCH ×4 (06:44→20:57)
[2023-09-10 08:02] LABS: VENOUS BASE EXCESS -10.1 (-2.0-2.0); VENOUS HCO3 16.8 MMOL/L (23.0-27.0); VENOUS O2 SATURATION 94.5 % (60.0-80.0); VENOUS PARTIAL PRESSURE CO2 41.1 mmHg (38.0-50.0); VENOUS PARTIAL PRESSURE O2 88.5 mmHg (30.0-50.0); VENOUS PH 7.229 UNITS (7.330-7.430); VENOUS STANDARD HCO3 16.3 MMOL/L
[2023-09-10] MEDS ORDERED: SODIUM BICARBONATE 325 MG TAB PO SCH (09:00)
[2023-09-10] MEDS ORDERED: **hydrALAZINE** 50 MG TAB PO SCH (09:00)
[2023-09-10] MEDS: DOCUSATE SODIUM 100MG CAPSULE PO SCH ×2 (09:00→20:56)
[2023-09-10] MEDS: CALCIUM ACETATE 667MG GELCAP PO SCH ×3 (09:04→20:56)
[2023-09-10] MEDS: ASPIRIN 81MG CHEW TABLET PO SCH (09:04)
[2023-09-10] MEDS: METOCLOPRAMIDE 5 MG TAB PO SCH ×2 (09:05→12:48)
[2023-09-10] MEDS: LEVEMIR (INSULIN DETEMIR) 1 UNITS/0.01ML SC SCH ×2 (09:05→20:58)
[2023-09-10] MEDS ORDERED: LR 1,000 ML IV SCH (09:45)
[2023-09-10 12:38] LABS: FERRITIN 79.5 NG/ML (5.0-244)
[2023-09-10 12:39] LABS: FOLATE 14.9 NG/ML (>5.4)
[2023-09-10 14:08] VITALS: BP 170/78; TEMP 97.7; O2SAT 95
[2023-09-10] MEDS ORDERED: **hydrALAZINE** 50 MG TAB PO ONE (15:30)
[2023-09-10] MEDS: SODIUM BICARBONATE 325 MG TAB PO SCH ×2 (15:49→20:57)
[2023-09-10 16:33] VITALS: BP_SYST 150; BP_SYST 170; BP_SYST 99; BP_DIAS 58; BP_DIAS 76; BP_DIAS 82
[2023-09-10 20:45] VITALS: BP 160/72; TEMP 97.7; O2SAT 94
[2023-09-10] MEDS: **hydrALAZINE** 50 MG TAB PO SCH (20:56)
[2023-09-10] MEDS: ROSUVASTATIN 10 MG TAB (CRESTOR) PO SCH (20:56)
[2023-09-10] MEDS: METOCLOPRAMIDE 10MG TAB PO SCH (20:56)
[2023-09-10 22:00] VITALS: O2SAT 94
[2023-09-11] VITALS (8 sets, daily range): BP systolic 132–167; BP diastolic 80–87; TEMP 97.7–97.9; O2SAT 94–95
[2023-09-11] MEDS: HEPARIN SOD (PORCINE) 5000UNITS/ML 1ML VIAL/SYRINGE SC SCH ×3 (05:24→21:01)
[2023-09-11] MEDS: LEVOTHYROXINE 150MCG TABLET (0.15MG) PO SCH (05:24)
[2023-09-11 06:22] LABS: ALBUMIN 2.7 G/DL (3.2-5.2); CALCIUM LEVEL 9.1 MG/DL (8.3-10.6); CREATININE FOR GFR 5.16 MG/DL (0.70-1.30); GLOMERULAR FILTRATION RATE 11.9 (>49); PHOSPHORUS LEVEL 4.9 MG/DL (2.4-5.1); POTASSIUM SERUM 4.1 MMOL/L (3.5-5.1)
[2023-09-11] MEDS: INSULIN LISPRO (NovoLOG) PER UNIT SC SCH ×4 (08:08→20:45)
[2023-09-11] MEDS: LEVEMIR (INSULIN DETEMIR) 1 UNITS/0.01ML SC SCH ×2 (08:08→21:00)
[2023-09-11] MEDS: ASPIRIN 81MG CHEW TABLET PO SCH (08:39)
[2023-09-11] MEDS: DOCUSATE SODIUM 100MG CAPSULE PO SCH ×2 (08:39→21:01)
[2023-09-11] MEDS: CALCIUM ACETATE 667MG GELCAP PO SCH ×3 (08:43→21:00)
[2023-09-11] MEDS: SODIUM BICARBONATE 325 MG TAB PO SCH ×2 (08:43→21:00)
[2023-09-11] MEDS: METOCLOPRAMIDE 5 MG TAB PO SCH ×2 (08:43→12:13)
[2023-09-11 08:44] LABS: CALCIUM LEVEL 9.9 MG/DL (8.8-10.2); CREATININE FOR GFR 5.5 MG/DL (0.7-1.5); FREE T4 1.44 NG/DL (0.93-1.70); PHOSPHORUS LEVEL 6.1 MG/DL (2.5-4.5); POTASSIUM SERUM 4.7 MEQ/L (3.6-5.0); THYROID STIMULATING HORMONE 2.28 UIU/ML (0.47-5.01)
[2023-09-11] MEDS: **hydrALAZINE** 50 MG TAB PO SCH ×3 (08:49→21:01)
[2023-09-11] MEDS: ROSUVASTATIN 10 MG TAB (CRESTOR) PO SCH (21:00)
[2023-09-11] MEDS: METOCLOPRAMIDE 10MG TAB PO SCH (21:01)
[2023-09-12 05:15] VITALS: BP 159/86; TEMP 97.2; O2SAT 94
[2023-09-12] MEDS: HEPARIN SOD (PORCINE) 5000UNITS/ML 1ML VIAL/SYRINGE SC SCH (05:39)
[2023-09-12] MEDS: LEVOTHYROXINE 150MCG TABLET (0.15MG) PO SCH (05:39)
[2023-09-12] MEDS: LEVEMIR (INSULIN DETEMIR) 1 UNITS/0.01ML SC SCH (07:34)
[2023-09-12] MEDS: INSULIN LISPRO (NovoLOG) PER UNIT SC SCH (07:34)
[2023-09-12 08:18] LABS: CALCIUM LEVEL 9.4 MG/DL (8.3-10.6); CREATININE FOR GFR 4.94 MG/DL (0.70-1.30); GLOMERULAR FILTRATION RATE 12.5 (>49)
[2023-09-12] MEDS ORDERED: DARBEPOETIN 100MCG/0.5ML *NON-DIALYSIS* SYRINGE SC SCH (09:00)
[2023-09-12] MEDS: SODIUM BICARBONATE 325 MG TAB PO SCH (09:03)
[2023-09-12] MEDS: METOCLOPRAMIDE 5 MG TAB PO SCH (09:03)
[2023-09-12] MEDS: **hydrALAZINE** 50 MG TAB PO SCH (09:04)
[2023-09-12] MEDS: ASPIRIN 81MG CHEW TABLET PO SCH (09:04)
[2023-09-12] MEDS: CALCIUM ACETATE 667MG GELCAP PO SCH (09:05)
[2023-09-12] MEDS: DOCUSATE SODIUM 100MG CAPSULE PO SCH (09:11)
[2023-09-12] MEDS ORDERED: SODI325T9 PO (10:14)
[2023-09-12] MEDS ORDERED: AMLO1TAB25 PO (10:14)
[2023-09-12] MEDS ORDERED: HYDR50TA PO (10:14)
== END 2023-09-12 11:30 | disposition home or self-care (01) ==
LOC: M ED 12:06 → M ED INP 12:07 → ENRESERV 18:16 → M MSPAV 18:45
PROVIDERS: ADMIT Student in an Organized Health Care Education/Training Program; ATTEND Student in an Organized Health Care Education/Training Program
DX: N17.9 Acute kidney failure, unspecified (principal); N18.5 Chronic kidney disease, stage 5; R55 Syncope and collapse; D63.8 Anemia in other chronic diseases classified elsewhere; E11.9 Type 2 diabetes mellitus without complications; E87.22 Chronic metabolic acidosis; Z79.4 Long term (current) use of insulin; Z79.82 Long term (current) use of aspirin; Z79.84 Long term (current) use of oral hypoglycemic drugs; Z79.899 Other long term (current) drug therapy; Z88.0 Allergy status to penicillin
CPT/HCPCS: 36415; 71045; 80047; 80048; 80069; 82607; 82728; 82746; 82803; 83550; 83605; 83735; 84100; 84439; 84443; 84484; 85025; 85027; 85610; 87631; 93005; 93041; 94760; 96372; 97161; 97530; 99285; G0378; J0881; J1815

== ENCOUNTER → 2023-10-15 | Outpatient (CLI) | payer MEDICARE, OTHER ==
[~2023-10-15] MED LIST changes: +AMLO1TAB25 PO; +FLORCAP10 PO; +HYDR50TA PO; +METO10TA2 PO; +ROSU40TA4 PO; +SODI325T9 PO
[2023-10-15 15:41] LABS: HEMOGLOBIN A1c 6.9 % (4.0-6.0)
[2023-10-15 15:53] LABS: CALCIUM LEVEL 9.1 MG/DL (8.3-10.6); CREATININE FOR GFR 4.79 MG/DL (0.70-1.30); GLOMERULAR FILTRATION RATE 12.9 (>49); POTASSIUM SERUM 4.5 MMOL/L (3.5-5.1)
== END ==
LOC: M LAB 14:56
PROVIDERS: ATTEND Family Medicine
DX: E11.22 Type 2 diabetes mellitus with diabetic chronic kidney disease (principal); N18.9 Chronic kidney disease, unspecified

== ENCOUNTER → 2023-10-30 | Outpatient (REF) | payer MEDICARE, OTHER ==
[2023-10-31 17:51] LABS: PERCENT SATURATION 15.6 % (19.7-50.0)
== END ==
LOC: M LAB REF 16:46
PROVIDERS: ATTEND Nurse Practitioner Family
DX: D50.9 Iron deficiency anemia, unspecified (principal)

== ENCOUNTER → 2023-12-04 | Outpatient (REF) | payer OTHER ==
[~2023-12-04] MED LIST changes: +FERR325T19 PO; -HYDR-3911 PO; -HYDR50TA PO; +HYDR50TA46 PO; +HYDR50TA47 PO; +INSUHUMDS SC; +METO50TA7 PO
== END ==
LOC: EDSTATUS 11-23 10:15 → M PLAIMG 09:42
PROVIDERS: ATTEND Nurse Practitioner Family
DX: Z01.818 Encounter for other preprocedural examination (principal); M47.9 Spondylosis, unspecified

== ENCOUNTER → 2024-01-15 | Outpatient (REF) | payer MEDICARE, OTHER ==
[2024-01-15 18:54] LABS: FERRITIN 42.8 NG/ML (10.5-307.3); IRON (FE) 64 UG/DL (65-175); PERCENT SATURATION 22.6 % (19.7-50.0); TOTAL IRON BINDING CAPACITY 283 UG/DL (250-425)
[2024-01-16 09:26] LABS: HEPATITIS B SURFACE ANTIBODY NEGATIVE (POSITIVE)
[2024-01-16 09:59] LABS: HEPATITIS B CORE ANTIBODY IGM NEGATIVE (NEGATIVE); HEPATITIS C VIRUS ABY INDEX < 0.02 INDEX (<0.8)
== END ==
LOC: M LAB REF 17:23
PROVIDERS: ATTEND Nurse Practitioner Family
DX: D50.9 Iron deficiency anemia, unspecified (principal); N18.5 Chronic kidney disease, stage 5; Z11.59 Encounter for screening for other viral diseases; Z72.89 Other problems related to lifestyle

== ENCOUNTER 2024-02-01 07:27 | Day surgery (SDC) | payer MEDICARE, OTHER ==
[~2024-02-01] VITALS: Ht 190.5 cm; Wt 119.9 kg
[~2024-02-01 07:27] MED LIST changes: +ONDA-83 PO; +PROBCAP14 PO
[2024-02-01] MEDS ORDERED: LR 1,000 ML IV SCH (07:45)
[2024-02-01] MEDS: NS 1,000 ML IV SCH (08:55)
[2024-02-01] MEDS: CelecoXIB 400 MG CAP PO ONE (08:55)
[2024-02-01] MEDS: INSULIN LISPRO (NovoLOG) PER UNIT SC PRN (09:26)
[2024-02-01] MEDS: ceFAZolin SOD 2 GM in IV 1 EA IV ONE (09:45)
[2024-02-01] MEDS: HEPARIN SOD (PORCINE) 5000UNITS/ML 1ML VIAL/SYRINGE As Ordered ONE (10:14)
[2024-02-01] MEDS ORDERED: LIDOCAINE 2% 100MG/5ML SDV (FOR ANES.) As Ordered ONE (10:21)
[2024-02-01] MEDS ORDERED: ONDANSETRON 4MG 2ML VIAL As Ordered ONE (10:21)
[2024-02-01] MEDS ORDERED: fentaNYL 100 MCG/2 ML INJECTION As Ordered ONE (10:21)
[2024-02-01] MEDS ORDERED: MIDAZOLAM INJ 2MG/2ML VIAL As Ordered ONE (10:21)
[2024-02-01] MEDS ORDERED: ACETAMINOPHEN 1000MG 100ML IV BAG As Ordered ONE (10:21)
[2024-02-01] MEDS ORDERED: propofoL 200 MG/20 ML VIAL As Ordered ONE (10:21)
[2024-02-01] MEDS ORDERED: ROCURONIUM BROMIDE 50MG/5ML VIAL As Ordered ONE (10:21)
[2024-02-01] MEDS ORDERED: SUGAMMADEX SODIUM 500 MG/5 ML VIAL (BRIDION) As Ordered ONE (10:21)
[2024-02-01] MEDS ORDERED: oxyCODONE 5MG TAB PO PRN (10:30)
[2024-02-01] MEDS ORDERED: ONDANSETRON 4MG 2ML VIAL IV PRN (10:30)
[2024-02-01] MEDS ORDERED: fentaNYL 100 MCG/2 ML INJECTION IV PRN (10:30)
[2024-02-01] MEDS ORDERED: MORPHINE 2 MG/ML 1ML VIAL IV PRN (10:30)
[2024-02-01] MEDS ORDERED: NORCO, ANEXSIA 5/325MG TABLET (HYDROcodone/ACETAMINOPHEN) PO PRN (11:10)
[2024-02-01 11:20] VITALS: BP 128/70; TEMP 97.1; O2SAT 98
[2024-02-01] MEDS ORDERED: KETOROLAC 30 MG/ML 1ML VIAL IV SCH (12:00)
== END 2024-02-01 12:04 | disposition home or self-care (01) ==
LOC: M SDC 07:27
PROVIDERS: ATTEND Surgery
DX: E11.22 Type 2 diabetes mellitus with diabetic chronic kidney disease (principal); N18.6 End stage renal disease; I12.0 Hypertensive chronic kidney disease with stage 5 chronic kidney disease or end stage renal disease; E11.40 Type 2 diabetes mellitus with diabetic neuropathy, unspecified; E03.9 Hypothyroidism, unspecified; Z76.82 Awaiting organ transplant status; E78.2 Mixed hyperlipidemia; Z79.890 Hormone replacement therapy; Z79.899 Other long term (current) drug therapy; Z79.82 Long term (current) use of aspirin; K21.9 Gastro-esophageal reflux disease without esophagitis; Z88.8 Allergy status to other drugs, medicaments and biological substances; Z87.891 Personal history of nicotine dependence
CPT/HCPCS: 49324; C1750; J0131; J0665; J0690; J1815; J2250; J2405; J3010

== ENCOUNTER → 2024-02-11 | Outpatient (CLI) | payer MEDICARE, OTHER | LOC: M PLAIMG 11:48 | PROVIDERS: ATTEND Internal Medicine Nephrology | DX: R10.30 Lower abdominal pain, unspecified (principal); K59.00 Constipation, unspecified ==

== ENCOUNTER 2024-02-19 08:43 | Observation (INO) | payer MEDICARE, OTHER ==
[~2024-02-19] VITALS: Ht 190.5 cm; Wt 250.5 kg
[~2024-02-19 08:43] MED LIST changes: +COLA100C5 PO; +GLUCAGON INJ 1MG VIAL SC PRN; +GLUCOSE 4GM CHEW TABLET PO PRN; +MIRA3350 PO; +[UNRECOGNIZED DRUG - CODE] SC
[2024-02-19] MEDS: DEXTROSE 50% 50ML SYRINGE IV PRN (08:48)
[2024-02-19] MEDS ORDERED: D5W/0.2% SODIUM CHLORIDE 1,000 ML IV SCH (08:50)
[2024-02-19 09:59] LABS: CREATININE FOR GFR 6.33 MG/DL (0.70-1.30); GLOMERULAR FILTRATION RATE 9.4 (>42); POTASSIUM SERUM 4.8 MMOL/L (3.5-5.1)
[2024-02-19 11:35] LABS: ALBUMIN 2.7 G/DL (3.2-5.2); BILIRUBIN,DIRECT 0.1 MG/DL (<0.4); BILIRUBIN,TOTAL 0.2 MG/DL (0.3-1.2); TOTAL PROTEIN 5.9 G/DL (5.7-8.2)
[2024-02-19 11:37] LABS: BASO % 0.2 % (0.0-1.0); EOS # 0.1 10^3/uL (0.0-0.5); EOS % 1.2 % (0.0-3.0); HEMATOCRIT 28.5 % (42.0-52.0); HEMOGLOBIN 8.4 g/dl (13.5-17.5); LYMPH # 0.8 10^3/uL (1.5-5.0); LYMPH % 7.8 % (24.0-44.0); MEAN CORPUSCULAR HEMOGLOBIN 27.6 pg (27.0-33.0); MEAN CORPUSCULAR HGB CONC 29.5 g/dl (32.0-36.5); MEAN CORPUSCULAR VOLUME 93.8 fl (80.0-96.0); MONO # 0.9 10^3/uL (0.0-0.8); MONO % 9.2 % (2.0-8.0); NEUTROPHILS # 7.9 10^3/uL (1.5-8.5); NEUTROPHILS % 81.2 % (36.0-66.0); PLATELET COUNT, AUTOMATED 191 10^3/uL (150-450); RED BLOOD COUNT 3.04 10^6/uL (4.30-6.10); WHITE BLOOD COUNT 9.8 10^3/uL (4.0-10.0)
[2024-02-19] MEDS ORDERED: MOM 30ML SUSPENSION UDC PO PRN (11:45)
[2024-02-19] MEDS ORDERED: GLUCOSE 4GM CHEW TABLET PO PRN (11:45)
[2024-02-19] MEDS ORDERED: GLUCAGON INJ 1MG VIAL SC PRN (11:45)
[2024-02-19] MEDS ORDERED: DEXTROSE 50% 50ML SYRINGE IV PRN (11:45)
[2024-02-19] MEDS ORDERED: ACETAMINOPHEN TAB 650MG DOSE (2X325MG) PO PRN (11:45)
[2024-02-19 13:02] VITALS: BP 137/65; O2SAT 95
[2024-02-19 13:08] VITALS: BP_SYST 138; BP_SYST 139; BP_SYST 141; BP_DIAS 66; BP_DIAS 71; BP_DIAS 72
[2024-02-19 13:10] VITALS: BP 141/92; TEMP 97.5; O2SAT 95
[2024-02-19 14:00] VITALS: BP 138/65; TEMP 97.7; O2SAT 96
[2024-02-19] MEDS ORDERED: HOME MED LIST COMPLETE! XX SCH (14:55)
[2024-02-19] MEDS: HEPARIN SOD (PORCINE) 5000UNITS/ML 1ML VIAL/SYRINGE SC SCH (15:24)
[2024-02-19 16:39] LABS: PHOSPHORUS LEVEL 6.5 MG/DL (2.4-5.1)
[2024-02-19] MEDS: ONDANSETRON 4MG TAB PO PRN (17:48)
[2024-02-19] MEDS: INSULIN LISPRO (NovoLOG) PER UNIT SC SCH (17:49)
[2024-02-19] MEDS: CALCIUM ACETATE 667MG GELCAP PO SCH (17:49)
[2024-02-19 19:36] VITALS: BP 154/74; TEMP 98.1; O2SAT 91
[2024-02-19] MEDS: SODIUM BICARBONATE 325 MG TAB PO SCH (20:43)
[2024-02-19] MEDS: METOPROLOL TART 50 MG TAB PO SCH (20:44)
[2024-02-19] MEDS: **hydrALAZINE** 50 MG TAB PO SCH (20:44)
[2024-02-19] MEDS: ROSUVASTATIN 10 MG TAB (CRESTOR) PO SCH (20:44)
[2024-02-19] MEDS: DOCUSATE SODIUM 100MG CAPSULE PO SCH (20:48)
[2024-02-20] VITALS (9 sets, daily range): BP systolic 128–158; BP diastolic 64–81; TEMP 97.7–98.2; O2SAT 93–96
[2024-02-20 07:36] LABS: HEMATOCRIT 28.1 % (42.0-52.0); HEMOGLOBIN 8.2 g/dl (13.5-17.5); MEAN CORPUSCULAR HEMOGLOBIN 27.4 pg (27.0-33.0); MEAN CORPUSCULAR HGB CONC 29.2 g/dl (32.0-36.5); PLATELET COUNT, AUTOMATED 194 10^3/uL (150-450); RED BLOOD COUNT 2.99 10^6/uL (4.30-6.10); WHITE BLOOD COUNT 7.8 10^3/uL (4.0-10.0)
[2024-02-20 07:53] LABS: CALCIUM LEVEL 8.6 MG/DL (8.3-10.6); CREATININE FOR GFR 6.07 MG/DL (0.70-1.30); GLOMERULAR FILTRATION RATE 9.8 (>42); POTASSIUM SERUM 4.9 MMOL/L (3.5-5.1)
[2024-02-20] MEDS: LEVOTHYROXINE 150MCG TABLET (0.15MG) PO SCH (08:24)
[2024-02-20] MEDS ORDERED: SODI650T PO (10:54)
[2024-02-20] MEDS ORDERED: INSU100V11 SQ ×2 (10:55)
[2024-02-20] MEDS ORDERED: ROCURONIUM BROMIDE 50MG/5ML VIAL As Ordered ONE (13:59)
[2024-02-20] MEDS ORDERED: fentaNYL 100 MCG/2 ML INJECTION As Ordered ONE (13:59)
[2024-02-20] MEDS ORDERED: ONDANSETRON 4MG 2ML VIAL As Ordered ONE (13:59)
[2024-02-20] MEDS ORDERED: propofoL 200 MG/20 ML VIAL As Ordered ONE (13:59)
[2024-02-20] MEDS ORDERED: LIDOCAINE 2% 100MG/5ML SDV (FOR ANES.) As Ordered ONE (13:59)
[2024-02-20] MEDS: ceFAZolin 2 GM/D5W 50 ML IV BAG As Ordered ONE (14:01)
[2024-02-20] MEDS ORDERED: METOCLOPRAMIDE INJ 10MG/2ML VIAL As Ordered ONE (14:02)
[2024-02-20] MEDS ORDERED: ACETAMINOPHEN 1000MG 100ML IV BAG As Ordered ONE (14:05)
[2024-02-20] MEDS ORDERED: SUGAMMADEX SODIUM 500 MG/5 ML VIAL (BRIDION) As Ordered ONE (14:06)
[2024-02-20] MEDS ORDERED: ESMOLOL INJ 100MG/10ML VIAL As Ordered ONE (14:24)
[2024-02-20] MEDS ORDERED: ONDANSETRON 4MG 2ML VIAL IV PRN (14:30)
[2024-02-20] MEDS ORDERED: fentaNYL 100 MCG/2 ML INJECTION IV PRN (14:30)
[2024-02-20] MEDS ORDERED: oxyCODONE 5MG TAB PO PRN (14:30)
[2024-02-21 02:04] VITALS: BP 125/65; TEMP 98.1; O2SAT 94
[2024-02-21 06:08] VITALS: BP 154/78; TEMP 97.7; O2SAT 96
[2024-02-21] MEDS: INSULIN LISPRO (NovoLOG) PER UNIT SC SCH (08:46)
[2024-02-21 08:47] VITALS: BP 121/77
[2024-02-21] MEDS: SODIUM BICARBONATE 325 MG TAB PO SCH (08:48)
[2024-02-21 10:00] VITALS: BP 131/72; TEMP 98.1; O2SAT 95
[2024-02-21] MEDS ORDERED: INSULIN LISPRO (NovoLOG) PER UNIT SC SCH (21:00)
== END 2024-02-21 10:56 | disposition home or self-care (01) ==
LOC: M SDC 08:43 → M RR INP 08:44 → M MSPAV 13:08
PROVIDERS: ADMIT Student in an Organized Health Care Education/Training Program; ATTEND Student in an Organized Health Care Education/Training Program
DX: N18.6 End stage renal disease (principal); T82.41XA Breakdown (mechanical) of vascular dialysis catheter, initial encounter; Z49.02 Encounter for fitting and adjustment of peritoneal dialysis catheter; E11.40 Type 2 diabetes mellitus with diabetic neuropathy, unspecified; E11.649 Type 2 diabetes mellitus with hypoglycemia without coma; I47.19 Other supraventricular tachycardia; R53.1 Weakness; E78.2 Mixed hyperlipidemia; E03.9 Hypothyroidism, unspecified; Z79.4 Long term (current) use of insulin; I12.0 Hypertensive chronic kidney disease with stage 5 chronic kidney disease or end stage renal disease; Z79.899 Other long term (current) drug therapy; K21.9 Gastro-esophageal reflux disease without esophagitis; Z88.8 Allergy status to other drugs, medicaments and biological substances
CPT/HCPCS: 36415; 49325; 80048; 80076; 82947; 84100; 85025; 85027; 93005; 96372; 97161; 97165; G0378; G0379; J0131; J0665; J0690; J1100; J1805; J1815; J2405; J2765; J3010

== ENCOUNTER → 2024-04-03 | Outpatient (CLI) | payer MEDICARE, OTHER ==
[~2024-04-03] MED LIST changes: -GLUCAGON INJ 1MG VIAL SC PRN; -GLUCOSE 4GM CHEW TABLET PO PRN; -ROSU40TA4; -ROSU40TA4 PO; +ROSU40TA63; +ROSU40TA63 PO
== END ==
LOC: M PLAIMG 12:31
PROVIDERS: ATTEND Internal Medicine Nephrology
DX: K59.00 Constipation, unspecified (principal)

== ENCOUNTER 2024-05-23 12:06 | Emergency (ER) | payer MEDICARE, OTHER ==
[~2024-05-23] VITALS: Ht 188 cm; Wt 113.6 kg
[2024-05-23] MEDS ORDERED: INSUHUMDS SC (12:19)
[2024-05-23] MEDS: GASTROGRAFIN SOLUTION 30ML PO SCH (13:33)
[2024-05-23 13:34] LABS: APPEARANCE, BODY FLUID CLEAR (CLEAR); BASO % 0.2 % (0.0-1.0); EOS # 0.2 10^3/uL (0.0-0.5); EOS % 2.2 % (0.0-3.0); HEMATOCRIT 37.7 % (42.0-52.0); HEMOGLOBIN 11.9 g/dl (13.5-17.5); LYMPH # 1.2 10^3/uL (1.5-5.0); MEAN CORPUSCULAR HEMOGLOBIN 28.3 pg (27.0-33.0); MEAN CORPUSCULAR HGB CONC 31.6 g/dl (32.0-36.5); MEAN CORPUSCULAR VOLUME 89.8 fl (80.0-96.0); MONO # 0.7 10^3/uL (0.0-0.8); NEUTROPHILS # 6.6 10^3/uL (1.5-8.5); NEUTROPHILS % 75.1 % (36.0-66.0); PERITONEAL FL COLOR COLORLESS (COLORLESS); PLATELET COUNT, AUTOMATED 214 10^3/uL (150-450); SOURCE, BODY FLUID PERITONEAL; WHITE BLOOD COUNT 8.7 10^3/uL (4.0-10.0)
[2024-05-23 14:00] LABS: LIPASE 21 U/L (12-53)
[2024-05-23 14:02] LABS: ALBUMIN 2.5 G/DL (3.2-5.2); ALKALINE PHOSPHATASE 82 U/L (46-116); ALT/SGPT 22 U/L (7.0-40); AST/SGOT 10 U/L (<34); BILIRUBIN,DIRECT < 0.1 MG/DL (<0.4); BILIRUBIN,TOTAL 0.2 MG/DL (0.3-1.2); BLOOD UREA NITROGEN 45 MG/DL (9-23); CALCIUM LEVEL 9.3 MG/DL (8.3-10.6); CARBON DIOXIDE LEVEL 27 MMOL/L (20-31); CHLORIDE LEVEL 107 MMOL/L (98-107); CREATININE FOR GFR 4.43 MG/DL (0.70-1.30); GLOMERULAR FILTRATION RATE 14.1 (>42); GLUCOSE, FASTING 166 MG/DL (74-106); POTASSIUM SERUM 3.7 MMOL/L (3.5-5.1); SODIUM LEVEL 141 MMOL/L (136-145); TOTAL PROTEIN 5.7 G/DL (5.7-8.2)
[2024-05-23] MEDS ORDERED: AMOX875T2 PO (17:09)
[2024-05-23] MEDS: AUGMENTIN 875 MG TAB PO ONE (17:31)
[2024-05-23 17:32] VITALS: BP 168/88; TEMP 97.8; O2SAT 97
== END 2024-05-23 17:33 | disposition home or self-care (01) ==
LOC: M ED 12:06
DX: R10.9 Unspecified abdominal pain (principal); E11.9 Type 2 diabetes mellitus without complications; I10 Essential (primary) hypertension; E78.5 Hyperlipidemia, unspecified; E03.9 Hypothyroidism, unspecified; N18.6 End stage renal disease; Z88.8 Allergy status to other drugs, medicaments and biological substances; Z79.82 Long term (current) use of aspirin; Z79.2 Long term (current) use of antibiotics; Z79.4 Long term (current) use of insulin; Z79.83 Long term (current) use of bisphosphonates; Z79.899 Other long term (current) drug therapy
CPT/HCPCS: 36415; 74176; 80048; 80076; 83690; 85025; 89050; 93041; 99284; Q9963

== ENCOUNTER 2024-07-18 11:05 | Day surgery (SDC) | payer MEDICARE, OTHER ==
[~2024-07-18] VITALS: Ht 190.5 cm; Wt 115.6 kg
[~2024-07-18 11:05] MED LIST changes: +AMOX875T2 PO; -ROSU40TA63; -ROSU40TA63 PO; +ROSU40TA81; +ROSU40TA81 PO
[2024-07-18] MEDS ORDERED: GLUCAGON INJ 1MG VIAL SC PRN (11:30)
[2024-07-18] MEDS ORDERED: DEXTROSE 50% 50ML SYRINGE IV PRN (11:30)
[2024-07-18] MEDS ORDERED: GLUCOSE 4 GM CHEW PO PRN (11:30)
[2024-07-18 11:31] LABS: HEMATOCRIT 38.6 % (42.0-52.0); HEMOGLOBIN 12.5 g/dl (13.5-17.5); MEAN CORPUSCULAR HEMOGLOBIN 30.1 pg (27.0-33.0); MEAN CORPUSCULAR HGB CONC 32.4 g/dl (32.0-36.5); PLATELET COUNT, AUTOMATED 189 10^3/uL (150-450); RED BLOOD COUNT 4.15 10^6/uL (4.30-6.10); WHITE BLOOD COUNT 7.8 10^3/uL (4.0-10.0)
[2024-07-18] MEDS: CelecoXIB 400 MG CAP PO ONE (11:37)
[2024-07-18 11:46] LABS: INR 1.01
[2024-07-18 11:57] LABS: CALCIUM LEVEL 9.3 MG/DL (8.3-10.6); CREATININE FOR GFR 5.27 MG/DL (0.70-1.30); GLOMERULAR FILTRATION RATE 11.6 (>42)
[2024-07-18] MEDS: LR 1,000 ML IV SCH (12:10)
[2024-07-18] MEDS ORDERED: propofoL 200 MG/20 ML VIAL As Ordered ONE (12:12)
[2024-07-18] MEDS ORDERED: ROCURONIUM BROMIDE 50MG/5ML VIAL As Ordered ONE (12:12)
[2024-07-18] MEDS ORDERED: LIDOCAINE 2% 100MG/5ML SDV (FOR ANES.) As Ordered ONE (12:12)
[2024-07-18] MEDS ORDERED: ACETAMINOPHEN 1000MG 100ML IV BAG As Ordered ONE (12:12)
[2024-07-18] MEDS ORDERED: fentaNYL 100 MCG/2 ML INJECTION As Ordered ONE (12:12)
[2024-07-18] MEDS: INSULIN LISPRO (NovoLOG) PER UNIT SC PRN (12:15)
[2024-07-18] MEDS: ceFAZolin SOD 2 GM in IV 1 EA IV ONE (15:10)
[2024-07-18] MEDS: HEPARIN SOD (PORCINE) 5000UNITS/ML 1ML VIAL/SYRINGE As Ordered ONE (15:15)
[2024-07-18] MEDS ORDERED: ONDANSETRON 4MG 2ML VIAL As Ordered ONE (15:58)
[2024-07-18] MEDS ORDERED: SUGAMMADEX SODIUM 500 MG/5 ML VIAL (BRIDION) As Ordered ONE (16:15)
[2024-07-18] MEDS ORDERED: LABETALOL 100MG/20ML VIAL As Ordered ONE (16:17)
[2024-07-18] MEDS ORDERED: HYDROMORPHONE HCL 0.5 MG/ 0.5 ML SYRINGE IV PRN (16:40)
[2024-07-18] MEDS ORDERED: LR 1,000 ML IV SCH (16:40)
[2024-07-18] MEDS ORDERED: fentaNYL 100 MCG/2 ML INJECTION IV PRN (16:40)
[2024-07-18] MEDS: oxyCODONE 5MG TAB PO PRN (16:58)
[2024-07-18] MEDS: ONDANSETRON 4MG 2ML VIAL IV PRN (16:59)
[2024-07-18 17:45] VITALS: BP 184/84; TEMP 96.8; O2SAT 97
== END 2024-07-18 18:10 | disposition home or self-care (01) ==
LOC: M SDC 11:05
PROVIDERS: ATTEND Surgery
DX: T82.49XA Other complication of vascular dialysis catheter, initial encounter (principal); N18.6 End stage renal disease; I12.0 Hypertensive chronic kidney disease with stage 5 chronic kidney disease or end stage renal disease; I25.10 Atherosclerotic heart disease of native coronary artery without angina pectoris; E11.22 Type 2 diabetes mellitus with diabetic chronic kidney disease; E03.9 Hypothyroidism, unspecified; E78.5 Hyperlipidemia, unspecified; Z79.899 Other long term (current) drug therapy
CPT/HCPCS: 36415; 49320; 80048; 85027; 85610; 85730; J0131; J0665; J0690; J1815; J1920; J2405; J3010

== ENCOUNTER → 2024-07-29 | Outpatient (REF) | payer MEDICARE, OTHER ==
[2024-07-29 16:08] LABS: HEMATOCRIT 35.1 % (42.0-52.0); HEMOGLOBIN 11.4 g/dl (13.5-17.5); MEAN CORPUSCULAR HEMOGLOBIN 30.1 pg (27.0-33.0); MEAN CORPUSCULAR HGB CONC 32.5 g/dl (32.0-36.5); MEAN CORPUSCULAR VOLUME 92.6 fl (80.0-96.0); PLATELET COUNT, AUTOMATED 176 10^3/uL (150-450); RED BLOOD COUNT 3.79 10^6/uL (4.30-6.10); WHITE BLOOD COUNT 7.7 10^3/uL (4.0-10.0)
[2024-07-29 16:14] LABS: CALCIUM LEVEL 8.5 MG/DL (8.3-10.6); CHOLESTEROL RISK RATIO 4.91 (<5); CREATININE FOR GFR 5.28 MG/DL (0.70-1.30); GLOMERULAR FILTRATION RATE 11.5 (>42); HDL CHOLESTEROL 29.7 MG/DL (>40); LDL CHOLESTEROL 88.7 MG/DL (<100); NON-HDL-C 116.3 MG/DL; POTASSIUM SERUM 3.8 MMOL/L (3.5-5.1)
[2024-07-29 16:21] LABS: INR 0.96; PROTHROMBIN TIME 12.5 SECONDS (12.5-14.5)
== END ==
LOC: M LAB REF 15:48
PROVIDERS: ATTEND Physician Assistant
DX: I25.10 Atherosclerotic heart disease of native coronary artery without angina pectoris (principal)

== ENCOUNTER 2024-08-26 07:51 | Day surgery (SDC) | payer MEDICARE, OTHER ==
[~2024-08-26] VITALS: Ht 188 cm; Wt 116.1 kg
[~2024-08-26 07:51] MED LIST changes: +GLIP10TA15 PO; -GLIP10TA6 PO; +LIDOCAINE 2% 100MG/5ML SDV (FOR ANES.) As Ordered ONE; +NS 250 ML IV ONE; +propofoL 200 MG/20 ML VIAL As Ordered ONE
[2024-08-26 09:49] VITALS: BP 147/68; O2SAT 97
== END 2024-08-26 09:57 | disposition home or self-care (01) ==
LOC: M OPP 07:51
PROVIDERS: ATTEND Surgery
DX: K64.8 Other hemorrhoids (principal); D12.3 Benign neoplasm of transverse colon; D17.5 Benign lipomatous neoplasm of intra-abdominal organs; K57.30 Diverticulosis of large intestine without perforation or abscess without bleeding; Z86.0100 Personal history of colon polyps, unspecified; I10 Essential (primary) hypertension; E78.5 Hyperlipidemia, unspecified; E11.9 Type 2 diabetes mellitus without complications; E03.9 Hypothyroidism, unspecified; H54.8 Legal blindness, as defined in USA; Z88.8 Allergy status to other drugs, medicaments and biological substances; Z79.4 Long term (current) use of insulin; Z79.899 Other long term (current) drug therapy

== ENCOUNTER → 2025-07-07 | Outpatient (REF) | payer MEDICARE, OTHER ==
[~2025-07-07] MED LIST changes: -LIDOCAINE 2% 100MG/5ML SDV (FOR ANES.) As Ordered ONE; -NS 250 ML IV ONE; -propofoL 200 MG/20 ML VIAL As Ordered ONE
[2025-07-07 19:11] LABS: BASO # 0.0 10^3/uL (0.0-0.2); BASO % 0.2 % (0.0-1.0); EOS # 0.2 10^3/uL (0.0-0.5); EOS % 2.3 % (0.0-3.0); LYMPH # 0.9 10^3/uL (1.5-5.0); LYMPH % 14.2 % (24.0-44.0); MONO # 0.5 10^3/uL (0.0-0.8); MONO % 7.2 % (2.0-8.0); NEUTROPHILS # 4.9 10^3/uL (1.5-8.5); NEUTROPHILS % 75.8 % (36.0-66.0); PLATELET COUNT, AUTOMATED 179 10^3/uL (150-450)
[2025-07-07 19:40] LABS: ALT/SGPT 45.0 U/L (7.0-40); AST/SGOT 25.0 U/L (<34); CALCIUM LEVEL 8.8 MG/DL (8.3-10.6); CARBON DIOXIDE LEVEL 26.0 MMOL/L (20-31); CHLORIDE LEVEL 108.0 MMOL/L (98-107); CHOLESTEROL LEVEL 124.0 MG/DL (<200); CHOLESTEROL RISK RATIO 3.55 (<5); CREATININE FOR GFR 5.65 MG/DL (0.70-1.30); GLOMERULAR FILTRATION RATE 10.1 (>42); LDL CHOLESTEROL 69.1 MG/DL (<100); NON-HDL-C 89.1 MG/DL; POTASSIUM SERUM 4.0 MMOL/L (3.5-5.1); SODIUM LEVEL 144.0 MMOL/L (136-145); TRIGLYCERIDES LEVEL 100.0 MG/DL (<150)
[2025-07-07 19:41] LABS: FREE T4 1.5 NG/DL (0.89-1.76)
== END ==
LOC: M SFHCLERA 11:28
PROVIDERS: ATTEND Internal Medicine
DX: N18.6 End stage renal disease (principal); E03.8 Other specified hypothyroidism; Z95.5 Presence of coronary angioplasty implant and graft